=== PATIENT | female | born 2000 | race Two or more races ===

== ENCOUNTER 2023-10-14 18:51 | Emergency (ER) | payer OTHER ==
[~2023-10-14] VITALS: Ht 162.6 cm; Wt 72.0 kg
[2023-10-14 21:43] LABS: Urine Bacteria FEW /hpf (None Seen); Urine Blood 1+ /uL (Negative); Urine Clarity Turbid (Clear); Urine Color Colorless (Yellow); Urine Protein, UAD 1+ (Negative); Urine Specific Gravity 1.018 (1.001-1.035); Urine Urobilinogen Normal (Negative); Urine WBC 222 /hpf (0 - 5)
[2023-10-14] MEDS ORDERED: CIPR-173 PO (21:45)
[2023-10-14] MEDS: CIPROFLOXACIN HCL 500 MG TAB PO ONE (22:28)
[2023-10-14 22:32] VITALS: BP 113/74; PULSE 91; RESP 20; TEMP 98; O2SAT 98
== END 2023-10-14 22:31 | disposition home or self-care (01) ==
LOC: ER 18:51
DX: N39.0 Urinary tract infection, site not specified (principal); Z79.899 Other long term (current) drug therapy
CPT/HCPCS: 81001; 81025